=== PATIENT | male | born 1990 | race Two or more races ===

== ENCOUNTER 2021-12-25 04:34 | Emergency (ER) | payer SELFPAY ==
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
[2021-12-25 04:46] VITALS: BP 130/80; PULSE 75; O2SAT 98
[2021-12-25 04:49] VITALS: BP 121/73; PULSE 73; RESP 20; TEMP 36.6; O2SAT 97; BMI 23.0
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
[2021-12-25] MEDS: Morphine Sulfate 4 MG/ML CARTRIDGE IM (06:45)
[2021-12-25] MEDS: Acetaminophen 325 MG TABLET 975 MG PO (06:46)
[2021-12-25] MEDS: ondansetron HCL 4 MG/2 ML VIAL IVPUSH (06:50)
[2021-12-25 07:07] VITALS: BP 113/69; PULSE 58; RESP 17; TEMP 36.7; O2SAT 99
[2021-12-25 07:23] LABS: MANUAL DIFF FLAG NO
[2021-12-25 07:26] LABS: Basophils Absolute Auto 0.1 X10*3/uL (0.0-0.2); Basophils Percent Auto 0.3 % (0-2); Eosinophils Percent Auto 0.2 % (0-4); Hemoglobin 14.7 g/dl (14.0-18.0); Imm Gran Abs Auto 0.06 X10*3/uL (0.00-0.03); Imm Gran Pct Auto 0.3 % (0.0-0.4); Lymphocytes Absolute Auto 1.7 X10*3/uL (1.2-4.9); Mean Corpuscular HGB Conc 34.2 g/dl (31.0-36.0); Mean Corpuscular Volume 93.7 fL (80.0-98.0); Mean Platelet Volume 9.8 fL (9.4-12.4); Monocytes Absolute Auto 1.2 X10*3/uL (0.1-1.2); Monocytes Percent Auto 6.4 % (2-11); Neutrophils Absolute Auto 15.3 x10*3/uL (2.0-8.3); Neutrophils Percent Auto 83.8 % (45-73); Platelet Count 229 X10*3/uL (160-400); Red Blood Count 4.59 X10*6/uL (4.60-5.80); Red Cell Distribution Width 11.8 % (11.0-16.0); White Blood Count 18.3 X10*3/uL (4.8-10.8)
[2021-12-25 07:50] LABS: Alanine Aminotransferase 17 U/L (0-40); Albumin Level 4.8 g/dL (3.5-5.0); Alkaline Phosphatase 55 U/L (39-117); Anion Gap 16 (12-20); Aspartate Amino Transferase 30 U/L (5-37); Bilirubin Total 0.6 mg/dL (0.0-1.0); Blood Urea Nitrogen 14 mg/dL (9-16); Calcium 9.6 mg/dL (8.4-10.2); Carbon Dioxide 25 mmol/L (22-29); Chloride 106 mmol/L (96-108); Creatinine Clr Calc Pharmacy 106.8; Estimated Glomerular Filt Rate > 60; Glucose Random 100 mg/dL (60-115); Potassium 4.1 mmol/L (3.3-5.1); Sodium 143 mmol/L (135-145); Total Protein 7.5 g/dL (6.5-8.0)
--- NOTE | 2021-12-25 08:49 | PHA.MEDREC ---
MED REC COMPLETE, NO ISSUES Pharmacy Consult ? Medication Reconciliation Pharmacy has completed the medication reconciliation.
[2021-12-25 10:33] VITALS: BP 113/70; PULSE 61; RESP 12; TEMP 37.2; O2SAT 99
--- NOTE | 2021-12-25 11:51 | PC.NURSE ---
PT GAVE VERBAL CONSENT TO UPDATE MOTHER OVER THE PHONE. PT C/O GENERALIZED BODY PAINS. PT RESTING IN NAD, RESP EVEN, NONLABOURED, SPEAKING IN CLEAR FULL SENTENCES. A&OX3, AWARE OF PLAN FOR REPEAT XR.
[2021-12-25 12:15] VITALS: BP 125/68; PULSE 58; RESP 12; TEMP 36.9; O2SAT 98
== END 2021-12-25 13:06 | disposition home or self-care (01) ==
PROVIDERS: Emergency Provider Emergency Medicine
DX: S27.0XXA Traumatic pneumothorax, initial encounter (principal); S10.91XA Abrasion of unspecified part of neck, initial encounter; S10.93XA Contusion of unspecified part of neck, initial encounter; V43.62XA Car passenger injured in collision with other type car in traffic accident, initial encounter; Y93.89 Activity, other specified; Y92.414 Local residential or business street as the place of occurrence of the external cause; Y99.9 Unspecified external cause status
CPT/HCPCS: 36415; 70450; 71046; 71250; 72125; 74176; 80053; 85025; 96372; 96374; 99284; 99285; J2270; J2405

== ENCOUNTER 2022-02-04 07:56 | Outpatient (REF) | payer OTHER, SELFPAY | END 2022-02-04 07:57 | disposition home or self-care (01) | LOC: HO.HOSX 07:56 | PROVIDERS: Visit Provider Physician Assistant | DX: Z13.89 Encounter for screening for other disorder (principal) ==